=== PATIENT | male | born 1970 | race African-American/Black ===

== ENCOUNTER 2017-12-25 08:52 | Inpatient (IN) | payer MEDICAID, OTHER ==
[~2017-12-25] VITALS: Ht 175.3 cm; Wt 85.5 kg
[2017-12-25] MEDS ORDERED: QUET100T PO (09:00)
[2017-12-25] MEDS ORDERED: TRAZ-220 PO (09:00)
[2017-12-25] MEDS ORDERED: ALPR0.255 PO (09:00)
[2017-12-25] MEDS ORDERED: LORazepam 2 MG TABLET PO ONE (09:30)
[2017-12-25 09:32] LABS: EOSINOPHILS % (AUTO) 0.3 % (1.0-6.0); HEMOGLOBIN 12.3 g/dL (13.5-17.5); LYMPHOCYTES % (AUTO) 34.2 % (22.0-44.0); MEAN CORPUSCULAR HEMOGLOBIN 26.5 pg (26.0-34.0); MEAN CORPUSCULAR HGB CONC 34.1 G/dL (31.0-37.0); MEAN CORPUSCULAR VOLUME 78 fL (80-100); MONOCYTES # (AUTO) 0.5 K/uL (0.1-1.0); MONOCYTES % (AUTO) 8.6 % (2.0-9.0); NEUTROPHILS # (AUTO) 3.2 K/uL (1.8-7.7); NEUTROPHILS % (AUTO) 55.9 % (40.0-70.0); PLATELET COUNT (AUTO) 253 K/uL (150-450); RED BLOOD CELL COUNT(AUTO) 4.64 MIL/uL (4.50-5.90); RED CELL DISTRIBUTION WIDTH 17.1 % (11.5-14.5)
[2017-12-25 09:38] LABS: AMPHET/METH SCREEN,URINE NEGATIVE (NEGATIVE); BARBITURATE SCREEN, URINE NEGATIVE (NEGATIVE); BENZODIAZEPINES SCREEN,URINE NEGATIVE (NEGATIVE); CANNABINOID SCREEN,URINE POSITIVE (NEGATIVE); COCAINE SCREEN,URINE POSITIVE (NEGATIVE); METHADONE SCREEN, URINE NEGATIVE (NEGATIVE); OPIATE SCREEN,URINE NEGATIVE (NEGATIVE)
[2017-12-25 09:40] LABS: PHENCYCLIDINE SCREEN,URINE NEGATIVE (NEGATIVE)
[2017-12-25 09:50] LABS: ANION GAP 14 mmol/L (8-16); CALCIUM, TOTAL 9.4 mg/dL (8.8-10.5); CARBON DIOXIDE 25 mmol/L (22-29); CHLORIDE 101 mmol/L (98-107); CREATININE 0.81 mg/dL (0.60-1.30); GLOMERULAR FILTR. RATE CALC > 60 mL/min (>60); GLUCOSE,RANDOM 93 mg/dL (70-110); POTASSIUM 3.2 mmol/L (3.5-5.1); SODIUM SERUM 140 mmol/L (136-145); UREA NITROGEN, BLOOD 12 mg/dL (7-18)
[2017-12-25 09:56] LABS: ALANINE AMINOTRANSFERASE 44 U/L (12-78); ALBUMIN 3.6 g/dL (3.4-5.0); ALKALINE PHOSPHATASE 79 U/L (46-116); ASPARTATE AMINOTRANSFERASE 61 U/L (15-37); BILIRUBIN,TOTAL 0.3 mg/dL (0.1-1.0); TOTAL PROTEIN, SERUM 7.5 g/dL (6.4-8.2)
[2017-12-25] MEDS ORDERED: OLANZapine 5 MG RAPDIS TABLET PO PRN (10:00)
[2017-12-25] MEDS ORDERED: ZOLPIDEM TARTRATE 10 MG TABLET PO PRN (10:00)
[2017-12-25] MEDS: OLANZapine 5 MG TABLET PO SCH (20:28)
[2017-12-25 20:40] VITALS: BP 115/74
[2017-12-26] MEDS ORDERED: POTASSIUM CHLORIDE 20 MEQ ER TABLET PO ONE (06:15)
[2017-12-26] MEDS: OLANZapine 5 MG TABLET PO SCH ×2 (09:07→17:46)
[2017-12-26 09:11] VITALS: BP 131/90
[2017-12-26 19:19] VITALS: BP 119/75
[2017-12-27 09:00] VITALS: BP 118/68
[2017-12-27] MEDS: OLANZapine 5 MG TABLET PO SCH ×2 (10:35→16:24)
[2017-12-27 16:57] VITALS: BP 135/89
[2017-12-27] MEDS: LORazepam 2 MG TABLET PO PRN (17:06)
[2017-12-27] MEDS: SERTRALINE HCL 50 MG TABLET PO SCH (21:50)
[2017-12-28 08:05] VITALS: BP 148/95
[2017-12-28] MEDS: OLANZapine 5 MG TABLET PO SCH ×2 (08:26→17:24)
[2017-12-28] MEDS: LORazepam 2 MG TABLET PO PRN (17:54)
[2017-12-28 18:00] VITALS: BP 139/79
[2017-12-28] MEDS: SERTRALINE HCL 50 MG TABLET PO SCH (20:03)
[2017-12-29] MEDS: OLANZapine 5 MG TABLET PO SCH (09:27)
[2017-12-29] MEDS ORDERED: OLAN5TAB2 PO (12:42)
[2017-12-29] MEDS ORDERED: SERT50TA12 PO (12:46)
== END 2017-12-29 13:20 | disposition home or self-care (01) | DRG 750 ==
LOC: EMS 08:53 → 3EI 19:38
PROVIDERS: ADMIT Psychiatry & Neurology Psychiatry; ATTEND Psychiatry & Neurology Psychiatry
DX: F25.0 Schizoaffective disorder, bipolar type (principal); R45.851 Suicidal ideations; Z91.14 Patient's other noncompliance with medication regimen; E87.6 Hypokalemia; D64.9 Anemia, unspecified; F41.9 Anxiety disorder, unspecified; F19.10 Other psychoactive substance abuse, uncomplicated; F60.3 Borderline personality disorder; F10.10 Alcohol abuse, uncomplicated; Z59.0 Homelessness; Z88.8 Allergy status to other drugs, medicaments and biological substances
CPT/HCPCS: 99285; G0480